=== PATIENT | male | born 1980 | race Caucasian/White ===

== ENCOUNTER 2017-09-24 12:07 | Emergency (ER) | payer SELFPAY ==
[~2017-09-24] VITALS: Ht 182.9 cm; Wt 113.4 kg
[2017-09-24] MEDS ORDERED: NS IV 1000 ML 1,000 ML IV ONE (12:32)
[2017-09-24 12:55] LABS: BASOPHILS % (AUTO) 1 % (0-10); EOSINOPHILS # (AUTO) 0.1 10^3/uL (0.0-0.3); EOSINOPHILS % (AUTO) 1 % (0-10); HEMATOCRIT 45 % (40-54); HEMOGLOBIN 15.7 G/DL (13.3-17.7); LYMPHOCYTES # (AUTO) 1.6 X 10^3 (1.0-4.0); LYMPHOCYTES % (AUTO) 24 % (12-44); MEAN CORPUSCULAR HEMOGLOBIN 30 PG (25-34); MEAN CORPUSCULAR HGB CONC 35 G/DL (32-36); MEAN CORPUSCULAR VOLUME 86 FL (80-99); MEAN PLATELET VOLUME 10.7 FL (7.4-10.4); MONOCYTES # (AUTO) 0.6 X 10^3 (0.0-1.0); MONOCYTES % (AUTO) 8 % (0-12); NEUTROPHILS # (AUTO) 4.5 X 10^3 (1.8-7.8); NEUTROPHILS % (AUTO) 66 % (42-75); PLATELET COUNT 209 10^3/uL (130-400); RED BLOOD COUNT 5.24 10^6/uL (4.35-5.85); RED CELL DISTRIBUTION WIDTH 12.8 % (10.0-14.5); WHITE BLOOD COUNT 6.7 10^3/uL (4.3-11.0)
--- OUTSIDE RECORDS SUMMARY | 2017-09-24 12:57 | XMS REPORT ---
Author Author OBED NGUYEN Organization [facility] WALK IN [facility] Address [address] [place] [address] Care Team Providers Care Fruit Raiser Name Role Phone LORI NGUYENICE Unavailable PROBLEMS Type Condition ICD9-CM Code [id number] Code Onset Dates Condition Status SNOMED Code Problem Seasonal allergic rhinitis, unspecified allergic rhinitis trigger J30.2 Active 065776211 ALLERGIES No Known Allergies SOCIAL HISTORY Never Assessed PLAN OF CARE Activity Details Follow Up prn Reason: VITAL SIGNS Height 72 in 2016-11-03 Weight 228.6 lbs 2016-11-03 Temperature 97.4 degrees Fahrenheit 2016-11-03 Heart Rate 88 bpm 2016-11-03 Respiratory Rate 20 2016-11-03 BMI 31.00 kg/m2 2016-11-03 Blood pressure systolic 126 mmHg 2016-11-03 Blood pressure diastolic 82 mmHg 2016-11-03 MEDICATIONS Medication Instructions Dosage Frequency Start Date End Date Duration Status Doxycycline Monohydrate 100 MG Orally every 12 hrs 1 capsule 12h Active RESULTS No Results PROCEDURES No Known procedures IMMUNIZATIONS No Known Immunizations MEDICAL (GENERAL) HISTORY Type Description Date Surgical History wisdom teeth Hospitalization History Chest Pains Right side 2010
--- OUTSIDE RECORDS SUMMARY | 2017-09-24 12:57 | XMS REPORT ---
Author Author REINIER DICKENS Organization [facility] WALK IN [facility] Address [address] [place] [address] Care Team Providers Care Autistic Teacher Name Role Phone REINIER DICKENS Unavailable PROBLEMS Type Condition ICD9-CM Code [id number] Code Onset Dates Condition Status SNOMED Code Problem Seasonal allergic rhinitis, unspecified allergic rhinitis trigger J30.2 Active 588549368 ALLERGIES No Known Allergies SOCIAL HISTORY Never Assessed PLAN OF CARE Activity Details Follow Up prn Reason: VITAL SIGNS Height 72 in 2016-10-27 Weight 235.4 lbs 2016-10-27 Temperature 98.0 degrees Fahrenheit 2016-10-27 Heart Rate 92 bpm 2016-10-27 Respiratory Rate 20 2016-10-27 BMI 31.92 kg/m2 2016-10-27 Blood pressure systolic 130 mmHg 2016-10-27 Blood pressure diastolic 90 mmHg 2016-10-27 MEDICATIONS No Known Medications RESULTS No Results PROCEDURES No Known procedures IMMUNIZATIONS No Known Immunizations MEDICAL (GENERAL) HISTORY Type Description Date Surgical History wisdom teeth Hospitalization History Chest Pains Right side 2010
--- OUTSIDE RECORDS SUMMARY | 2017-09-24 12:57 | XMS REPORT ---
Author Author RICH AYALA [facility] Address [address] [place] [address] Care Team Providers Care Health Lead Name Role Phone RICH AYALA Unavailable PROBLEMS Type Condition ICD9-CM Code [id number] Code Onset Dates Condition Status SNOMED Code Problem Seasonal allergic rhinitis, unspecified allergic rhinitis trigger J30.2 Active 323768734 ALLERGIES No Information SOCIAL HISTORY Never Assessed PLAN OF CARE Activity Details Follow Up prn Reason: VITAL SIGNS MEDICATIONS No Known Medications RESULTS No Results PROCEDURES No Known procedures IMMUNIZATIONS No Known Immunizations MEDICAL (GENERAL) HISTORY Type Description Date Surgical History wisdom teeth Hospitalization History Chest Pains Right side 2010
--- OUTSIDE RECORDS SUMMARY | 2017-09-24 12:57 | XMS REPORT | Continuity of Care Document ---
Author Author [facility] of [facility] Address Unknown Phone Unavailable Allergies There is no data. Medications There is no data. Problems Date Dx Coded Attending Type Code Diagnosis Diagnosed By 05/22/2013 BENNY BARNES DO 465.9 UPPER RESPIRATORY INFECTION 05/22/2013 NEO STEVENS APRN 465.9 UPPER RESPIRATORY INFECTION 11/22/2013 NEO STEVENS APRN 787.02 NAUSEA ALONE Procedures There is no data. Results There is no data. Encounters ACCT No. Visit Date/Time Discharge Status Pt. Type Provider Facility Loc./Unit Complaint [id number] 11/22/2013 14:55:00 11/22/2013 23:59:59 CLS Outpatient NEO STEVENS APRN [id number] 05/22/2013 10:50:00 05/22/2013 23:59:59 CLS Outpatient BENNY BARNES DO
--- OUTSIDE RECORDS SUMMARY | 2017-09-24 12:57 | XMS REPORT ---
Author SANDRA Dumont Organization [employer] Address Unknown Phone Unavailable Care Team Providers Care Practicing Urologist Name Role Phone SANDRA HOUGH CP Unavailable Allergies, Adverse Reactions, Alerts Substance Reaction Event Type N.K.D.A. Info Not Available Non Drug Allergy Problems Problem Type Condition Code Onset Dates Condition Status Problem Nausea alone 787.02 Active Assessment Acute upper respiratory infection, unspecified J06.9 Active Problem Acute upper respiratory infections of unspecified site 465.9 Active Medications No Known Medications Procedures Procedure Coding System Code Date Office Visit, Est Pt., Level 3 CPT-4 44868 Jun 08, 2016 Vital Signs Date/Time: Jun 08, 2016 Cardiac Monitoring Heart Rate 100 bpm Weight 232.8 lbs Height 72 in BMI 31.57 Index Blood Pressure Diastolic 92 mmHg Blood Pressure Systolic 140 mmHg Results No Known Results Summary Purpose [employer] Submission
--- OUTSIDE RECORDS SUMMARY | 2017-09-24 12:57 | XMS REPORT ---
Author Author REINIER DICKENS Organization [facility] WALK IN [facility] Address [address] [place] [address] Care Team Providers Care Flat Ironer Name Role Phone MANINDER REINIER Unavailable PROBLEMS Type Condition ICD9-CM Code [id number] Code Onset Dates Condition Status SNOMED Code Problem Seasonal allergic rhinitis, unspecified allergic rhinitis trigger J30.2 Active [id number] ALLERGIES No Known Allergies SOCIAL HISTORY Never Assessed PLAN OF CARE Activity Details Follow Up prn Reason: VITAL SIGNS Height 72 in 2016-11-15 Weight 238.8 lbs 2016-11-15 Temperature 96.7 degrees Fahrenheit 2016-11-15 Heart Rate 80 bpm 2016-11-15 Respiratory Rate 22 2016-11-15 BMI 32.38 kg/m2 2016-11-15 Blood pressure systolic 128 mmHg 2016-11-15 Blood pressure diastolic 80 mmHg 2016-11-15 MEDICATIONS Medication Instructions Dosage Frequency Start Date End Date Duration Status Cough Syrup 100 MG/5ML Orally every 4 hrs 10 ml as needed 4h Active Zyrtec Allergy 10 MG Orally Once a day 1 tablet 24h Oct, Nov, 30 day(s) Active Fluticasone Propionate 50 MCG/ACT Nasally Once a day 1 spray in each nostril 24h Oct, 30 day(s) Active Benzonatate 200 MG Orally Three times a day 1 capsule 8h Oct, Oct, 5 days Active RESULTS No Results PROCEDURES Procedure Date Ordered Result Body Site DEPO MEDROL 40 MG/ML November 15, 2016 THER/PROPH/DIAG INJ, SC/IM November 15, 2016 DEXAMETHASONE 4MG/ML (PER 1 MG) November 15, 2016 IMMUNIZATIONS Vaccine Route Administration Date Status DEXAMETHASONE 4MG/ML (PER 1 MG) IM Intramuscular November 15, 2016 Administered DEPO MEDROL 40 MG/ML IM Intramuscular November 15, 2016 Administered MEDICAL (GENERAL) HISTORY Type Description Date Surgical History wisdom teeth Hospitalization History Chest Pains Right side 2010
--- OUTSIDE RECORDS SUMMARY | 2017-09-24 12:57 | XMS REPORT ---
Author Author NASH BECKER Organization [facility] Address [address] [place] [address] Care Team Providers Care Supervisor Name Role Phone NASH BECKER Unavailable PROBLEMS Type Condition ICD9-CM Code [id number] Code Onset Dates Condition Status SNOMED Code Problem Seasonal allergic rhinitis, unspecified allergic rhinitis trigger J30.2 Active [id number] ALLERGIES Substance Reaction Event Type Date Status N.K.D.A. Unknown Non Drug Allergy Sep, Unknown SOCIAL HISTORY No smoking Hx information available PLAN OF CARE Activity Details Follow Up 3 Months, prn Reason: VITAL SIGNS Height 72 in 2016-09-30 Weight 235.4 lbs 2016-09-30 Temperature 97.9 degrees Fahrenheit 2016-09-30 Heart Rate 88 bpm 2016-09-30 Respiratory Rate 20 2016-09-30 BMI 31.92 kg/m2 2016-09-30 Blood pressure systolic 132 mmHg 2016-09-30 Blood pressure diastolic 90 mmHg 2016-09-30 MEDICATIONS No Known Medications RESULTS Name Result Date Reference Range Xray : Wrist, Left 3 views (IN HOUSE) 2016-09-30 PROCEDURES Procedure Date Ordered Related Diagnosis Body Site X-RAY EXAM OF WRIST Sep 30, 2016 Office Visit, Est Pt., Level 3 Sep 30, 2016 IMMUNIZATIONS No Known Immunizations
[2017-09-24 13:00] VITALS: BP 147/94
[2017-09-24 13:03] VITALS: BP_SYST 144; BP_SYST 147; BP_SYST 154; BP_DIAS 86; BP_DIAS 94; BP_DIAS 97
[2017-09-24 13:09] LABS: FIBRIN DEGRADATION PRODUCTS < 0.27 UG/ML (0.00-0.49)
--- NOTE | 2017-09-24 13:14 | ED Neurological Problem ---
General Chief Complaint: Dizziness/Syncope Stated Complaint: DIZZINESS Nursing Triage Note: pt reports intermittent periods of dizziness and anxiety x 2 days Nursing Sepsis Screen: No Definite Risk Source: patient Exam Limitations: no limitations History of Present Illness Date Seen by Provider: Sep 24, 2017 Time Seen by Provider: 13:14 Allergies and Home Medications Allergies Coded Allergies: No Known Drug Allergies (Unverified , 09/24/17) Home Medications No Active Prescriptions or Reported Meds Past Htosdel-Eqxwiu-Bqqawe Hx Patient Social History Alcohol Use: Rarely Uses Recreational Drug Use: No Smoking Status: Former Smoker Former Smoker, Quit: Nov 09, 2016 Recent Foreign Travel: No Contact w/Someone Who Travel: No Recent Infectious Disease Expo: No Recent Hopitalizations: No Physical Abuse: No Sexual Abuse: No Mistreated: No Fear: No Seasonal Allergies Seasonal Allergies: No Surgeries History of Surgeries: Yes (wisdom teeth) Respiratory History of Respiratory Disorde: No Cardiovascular History of Cardiac Disorders: No Neurological History of Neurological Disord: No Genitourinary History of Genitourinary Disor: No Gastrointestinal History of Gastrointestinal Di: No Musculoskeletal History of Musculoskeletal Dis: No Endocrine History of Endocrine Disorders: No HEENT History of HEENT Disorders: No Cancer History of Cancer: No Psychosocial History of Psychiatric Problem: No Suicide Risk Score: 0 Blood Transfusions History of Blood Disorders: No Physical Exam Vital Signs Vital Sign - Last 12Hours 09/24/17 12:24 Temp 96.9 Pulse 85 Resp 18 B/P (MAP) 153/102 (119) Pulse Ox 96 Capillary Refill : Less Than 3 Seconds Progress/Results/Core Measures Results/Orders Lab Results Laboratory Tests Test 09/24/17 12:40 09/24/17 13:48 09/24/17 16:37 Range/Units White Blood Count 6.7 4.3-11.0 10^3/uL Red Blood Count 5.24 4.35-5.85 10^6/uL Hemoglobin 15.7 13.3-17.7 G/DL Hematocrit 45 40-54 % Mean Corpuscular Volume 86 80-99 FL Mean Corpuscular Hemoglobin 30 25-34 PG Mean Corpuscular Hemoglobin Concent 35 32-36 G/DL Red Cell Distribution Width 12.8 10.0-14.5 % Platelet Count 209 130-400 10^3/uL Mean Platelet Volume 10.7 H 7.4-10.4 FL Neutrophils (%) (Auto) 66 42-75 % Lymphocytes (%) (Auto) 24 12-44 % Monocytes (%) (Auto) 8 0-12 % Eosinophils (%) (Auto) 1 0-10 % Basophils (%) (Auto) 1 0-10 % Neutrophils # (Auto) 4.5 1.8-7.8 X 10^3 Lymphocytes # (Auto) 1.6 1.0-4.0 X 10^3 Monocytes # (Auto) 0.6 0.0-1.0 X 10^3 Eosinophils # (Auto) 0.1 0.0-0.3 10^3/uL Basophils # (Auto) 0.0 0.0-0.1 10^3/uL Prothrombin Time 13.2 12.2-14.7 SEC INR Comment 1.0 0.8-1.4 Activated Partial Thromboplast Time 36 H 24-35 SEC D-Dimer < 0.27 0.00-0.49 UG/ML Sodium Level 142 135-145 MMOL/L Potassium Level 3.7 3.6-5.0 MMOL/L Chloride Level 105 98-107 MMOL/L Carbon Dioxide Level 25 21-32 MMOL/L Anion Gap 12 5-14 MMOL/L Blood Urea Nitrogen 11 7-18 MG/DL Creatinine 0.82 0.60-1.30 MG/DL Estimat Glomerular Filtration Rate > 60 BUN/Creatinine Ratio 13 Glucose Level 98 70-105 MG/DL Calcium Level 9.3 8.5-10.1 MG/DL Magnesium Level 2.2 1.8-2.4 MG/DL Total Bilirubin 1.1 H 0.1-1.0 MG/DL Aspartate Amino Transf (AST/SGOT) 18 5-34 U/L Alanine Aminotransferase (ALT/SGPT) 21 0-55 U/L Alkaline Phosphatase 70 40-136 U/L Total Creatine Kinase 74 30-200 U/L Creatine Kinase MB 0.7 <6.6 NG/ML Myoglobin 27.2 10.0-92.0 NG/ML Troponin I < 0.30 < 0.30 <0.30 NG/ML Total Protein 7.2 6.4-8.2 GM/DL Albumin 4.3 3.2-4.5 GM/DL Triglycerides Level 171 H <150 MG/DL Cholesterol Level 208 H < 200 MG/DL LDL Cholesterol Direct 158 H 1-129 MG/DL VLDL Cholesterol 34 5-40 MG/DL HDL Cholesterol 33 L 40-60 MG/DL TSH [place] Testing 1.10 0.35-4.94 UIU/ML Serum Alcohol < 10 <10 MG/DL Urine Color YELLOW Urine Clarity CLEAR Urine pH 6 5-9 Urine Specific [place] 1.010 L 1.016-1.022 Urine Protein NEGATIVE NEGATIVE Urine Glucose (UA) NEGATIVE NEGATIVE Urine Ketones NEGATIVE NEGATIVE Urine Nitrite NEGATIVE NEGATIVE Urine Bilirubin NEGATIVE NEGATIVE Urine Urobilinogen NORMAL NORMAL MG/DL Urine Leukocyte Esterase NEGATIVE NEGATIVE Urine RBC (Auto) NEGATIVE NEGATIVE Urine RBC NONE /HPF Urine WBC NONE /HPF Urine Squamous Epithelial Cells NONE /HPF Urine Crystals NONE /LPF Urine Bacteria TRACE /HPF Urine Casts NONE /LPF Urine Mucus NEGATIVE /LPF Urine Culture Indicated NO Urine Opiates Screen NEGATIVE NEGATIVE Urine Oxycodone Screen NEGATIVE NEGATIVE Urine Methadone Screen NEGATIVE NEGATIVE Urine Propoxyphene Screen NEGATIVE NEGATIVE Urine Barbiturates Screen NEGATIVE NEGATIVE Ur Tricyclic Antidepressants Screen NEGATIVE NEGATIVE Urine Phencyclidine Screen NEGATIVE NEGATIVE Urine Amphetamines Screen NEGATIVE NEGATIVE Urine Methamphetamines Screen NEGATIVE NEGATIVE Urine Benzodiazepines Screen NEGATIVE NEGATIVE Urine Cocaine Screen NEGATIVE NEGATIVE Urine Cannabinoids Screen NEGATIVE NEGATIVE My Orders Orders - ARIEL REYES Alcohol (09/24/17 12:32) Cbc With Automated Diff (09/24/17 12:32) Comprehensive Metabolic Panel (09/24/17 12:32) Fibrin Degradation Products (09/24/17 12:32) Drug Screen Stat (Urine) (09/24/17 12:32) Magnesium (09/24/17 12:32) Thyroid Analyzer (09/24/17 12:32) Troponin I (09/24/17 12:32) Ua Culture If Indicated (09/24/17 12:32) Saline Lock/Iv-Start (09/24/17 12:32) Ekg Tracing (09/24/17 12:32) Monitor-Rhythm Ecg Trace Only (09/24/17 12:32) Ns Iv 1000 Ml (Sodium Chloride 0.9%) (09/24/17 12:32) Orthostatic Vital Signs (Adult (09/24/17 12:32) Lipid Panel (09/24/17 13:37) Ct Head Wo (09/24/17 13:37) Creatine Kinase (09/24/17 13:39) Creatine Kinase Mb (09/24/17 13:39) Protime With Inr (09/24/17 13:39) Partial Thromboplastin Time (09/24/17 13:39) Myoglobin Serum (09/24/17 13:39) Chest 1 View, Ap/Pa Only (09/24/17 13:39) Protime With Inr (09/24/17 12:40) Partial Thromboplastin Time (09/24/17 12:40) Troponin I (09/24/17 16:00) Medications Given in ED Current Medications Medications Dose Ordered Sig/Mary Route Start Time Stop Time Status Last Admin Dose Admin Sodium Chloride 1,000 ml @ 0 mls/hr Q0M ONCE IV 09/24/17 12:32 09/24/17 12:37 DC 09/24/17 12:48 0 MLS/HR Vital Signs/I&O Vital Sign - Last 12Hours 09/24/17 09/24/17 09/24/17 12:24 13:00 13:03 Temp 96.9 Pulse 85 86 86 73 78 Resp 18 B/P (MAP) 153/102 (119) 147/94 (111) 147/94 (111) 154/97 (116) 144/86 (105) Pulse Ox 96 Blood Pressure Mean: 105 ECG Initial ECG Impression Date: Sep 24, 2017 Initial ECG Impression Time: 12:48 Initial ECG Rate: 73 Initial ECG Rhythm: Normal Sinus Initial ECG Intervals: Normal Initial ECG Impression: Normal Initial ECG Comparisson: No Previous ECG Available Comment sinus rhythm without STEMI or arrhythmia. ECG reviewed with Dr. Huynh. Diagnostic Imaging Diagonstic Imaging: CT Plain Films/CT/US/NM/MRI: head Comments CT HEAD WO PROCEDURE: CT head without contrast. TECHNIQUE: Multiple contiguous axial images were obtained through the brain without the use of intravenous contrast. INDICATION: Dizziness, lightheaded. COMPARISON: None. FINDINGS: The ventricles and cortical sulci are age-appropriate. There is no midline shift or mass effect. No CT evidence of acute territorial ischemia seen. The calvarium is intact. The visualized paranasal sinuses are unremarkable. IMPRESSION: 1. No acute intracranial hemorrhage or CT evidence of acute territorial ischemia. Dictated on workstation # [id number] Reviewed: Reviewed by Me (radiology report reviewed by me) Diagonstic Imaging: Xray Plain Films/CT/US/NM/MRI: chest Comments CHEST 1 VIEW, AP/PA ONLY Patient History: Chest pain and dizziness. Technique: Single frontal view of the chest Comparison: None FINDINGS: The lung volumes are normal. No focal consolidation is seen. No large pleural effusion or pneumothorax is seen. The cardiomediastinal silhouette is normal in size and contour. No acute osseous abnormality is seen. IMPRESSION: No acute pulmonary abnormality seen. Dictated on workstation # [id number] Reviewed: Reviewed by Me (radiology report reviewed by me) Departure Impression Impression: Primary Impression: Dizziness Additional Impressions: Hypercholesteremia Anxiety about health Stress Disposition: HOME, SELF-CARE Condition: Improved Departure-Patient Inst. Decision time for Depature: 17:27 Referrals: NO,LOCAL PHYSICIAN (PCP) Primary Care Physician JET BA HOLLY R MD STEWART, JULIE A MD Patient Instructions: Chest Pain (DC), Dizziness, Nonvertigo, (DC), Familial Hypercholesterolemia, Stress Add. Discharge Instructions: All discharge instructions reviewed with patient and/or family. Voiced understanding. Medications as instructed. Tylenol extra strength over-the- counter as directed for pain. Ibuprofen 800 mg by mouth every 8 hours as needed for pain. Avoid standing or walking too quickly. Drink plenty of fluids. Aspirin 81 mg daily. Follow-up with [facility] tomorrow or Monday for recheck. They may schedule you for an outpatient echocardiogram , stress test, and/or MRI of the brain. Return immediately to the emergency department for worsened symptoms, dizziness, headache, changes in vision, changes in behavior, slurred speech, numbness, weakness, vomiting, seizure, shortness of air, chest pain, or any other concerns. Scripts Meclizine HCl (Meclizine HCl) 25 Mg Tablet 25 MG PO Q6H Y for DIZZINESS, #20 TAB 0 Refills Prov: ARIEL REYES 09/24/17 Work/School Note: Local Medical Staff Listing, Work Release Form Date Seen in the Emergency Department: Sep 24, 2017 Return to Work: Sep 26, 2017 Restrictions: Need Release from Doctor RAIEL REYES Sep 24, 2017 13:14
[2017-09-24 13:16] LABS: ALANINE AMINOTRANSFERASE 21 U/L (0-55); ALBUMIN 4.3 GM/DL (3.2-4.5); ALKALINE PHOSPHATASE 70 U/L (40-136); BILIRUBIN,TOTAL 1.1 MG/DL (0.1-1.0); BUN/CREATININE RATIO 13; CALCIUM 9.3 MG/DL (8.5-10.1); CARBON DIOXIDE 25 MMOL/L (21-32); CHLORIDE 105 MMOL/L (98-107); CREATININE SERUM 0.82 MG/DL (0.60-1.30); GFR ESTIMATED > 60; GLUCOSE 98 MG/DL (70-105); MAGNESIUM 2.2 MG/DL (1.8-2.4); POTASSIUM 3.7 MMOL/L (3.6-5.0); SODIUM 142 MMOL/L (135-145); TOTAL PROTEIN 7.2 GM/DL (6.4-8.2)
[2017-09-24 13:53] LABS: BILIRUBIN,URINE NEGATIVE (NEGATIVE); CLARITY,URINE CLEAR; COLOR,URINE YELLOW; GLUCOSE, URINE (UA) NEGATIVE (NEGATIVE); KETONES,URINE NEGATIVE (NEGATIVE); LEUKOCYTE ESTERASE ,URINE NEGATIVE (NEGATIVE); NITRITE,URINE NEGATIVE (NEGATIVE); PH,URINE 6 (5-9); PROTEIN,URINE NEGATIVE (NEGATIVE); UROBILINOGEN,URINE NORMAL (NORMAL)
[2017-09-24 13:55] LABS: PROTHROMBIN TIME PATIENT 13.2 SEC (12.2-14.7)
[2017-09-24 13:56] LABS: PARTIAL THROMBOPLASTIN TIME 36 SEC (24-35)
[2017-09-24 13:59] LABS: BACTERIA,URINE TRACE /HPF
[2017-09-24 14:03] LABS: CREATINE KINASE MB 0.7 NG/ML (<6.6); MYOGLOBIN SERUM 27.2 NG/ML (10.0-92.0)
[2017-09-24 14:05] LABS: AMPHETAMINE SCREEN, URINE NEGATIVE (NEGATIVE); BARBITURATE SCREEN URINE NEGATIVE (NEGATIVE); BENZODIAZEPINES SCREEN URINE NEGATIVE (NEGATIVE); CANNABINOID SCREEN, URINE NEGATIVE (NEGATIVE); COCAINE SCREEN URINE NEGATIVE (NEGATIVE); METHADONE STAT NEGATIVE (NEGATIVE); METHAMPHETAMINE SCREEN URINE S NEGATIVE (NEGATIVE); OPIATE SCREEN URINE NEGATIVE (NEGATIVE); OXYCODONE STAT NEGATIVE (NEGATIVE); PROPOXYPHENE STAT NEGATIVE (NEGATIVE); TRICYCLIC ANTIDEPRESSANTS SCRE NEGATIVE (NEGATIVE)
--- NOTE | 2017-09-24 14:11 | Diagnostic Imaging Report ---
PROCEDURE: CT head without contrast. TECHNIQUE: Multiple contiguous axial images were obtained through the brain without the use of intravenous contrast. INDICATION: Dizziness, lightheaded. COMPARISON: None. FINDINGS: The ventricles and cortical sulci are age-appropriate. There is no midline shift or mass effect. No CT evidence of acute territorial ischemia seen. The calvarium is intact. The visualized paranasal sinuses are unremarkable. IMPRESSION: 1. No acute intracranial hemorrhage or CT evidence of acute territorial ischemia. Dictated by: Dictated on workstation # [id number]
--- NOTE | 2017-09-24 14:11 | Diagnostic Imaging Report ---
Patient History: Chest pain and dizziness. Technique: Single frontal view of the chest Comparison: None FINDINGS: The lung volumes are normal. No focal consolidation is seen. No large pleural effusion or pneumothorax is seen. The cardiomediastinal silhouette is normal in size and contour. No acute osseous abnormality is seen. IMPRESSION: No acute pulmonary abnormality seen. Dictated by: Dictated on workstation # [id number]
[2017-09-24] MEDS ORDERED: MECL-106 PO (17:29)
[2017-09-24 17:54] VITALS: BP 136/84
== END 2017-09-24 17:54 | disposition home or self-care (01) ==
LOC: ER 12:09
DX: R42 Dizziness and giddiness (principal); E78.00 Pure hypercholesterolemia, unspecified; F41.9 Anxiety disorder, unspecified; F43.9 Reaction to severe stress, unspecified; Z87.891 Personal history of nicotine dependence
CPT/HCPCS: 36415; 70450; 71045; 80053; 80061; 80306; 80320; 81000; 82550; 82553; 83735; 83874; 84443; 84484; 85025; 85379; 85610; 85730; 93005; 93041